=== PATIENT | male | born 1990 | race Two or more races ===

== ENCOUNTER 2021-05-28 12:04 | Inpatient (IN) ==
[2021-05-28 14:20] LABS: Alanine Aminotransferase 23 U/L (16-61); Albumin 3.2 G/DL (3.4-5.0); Alkaline Phosphatase 39 U/L (45-117); Aspartate Amino Transferase 26 U/L (0-37); Basophils # 0.1 10*3/uL (0.0-0.2); Basophils % 0.8 % (0.0-0.8); Bilirubin,Total < 0.39 MG/DL (0.20-1.00); Blood Urea Nitrogen 16 MG/DL (7-18); Calcium 8.4 MG/DL (8.5-10.1); Carbon Dioxide 25 MMOL/L (21-32); Chloride 110 MMOL/L (98-107); Eosinophils # 0.1 10*3/uL (0.0-0.87); Eosinophils % 1.6 % (0.00-10.9); Estimated Glom Filtration Rate 125 ML/MIN; Glucose 86 MG/DL (74-106); Hematocrit 22.3 VOL% (42.0-52.0); Immature Granulocytes % 0.3 %; Immature Granulocytes Absolute 0.02 #; Lymphocytes # 1.6 10*3/uL (1.4-4.0); Lymphocytes % 24.8 % (21.2-54.2); Mean Corpuscular HGB Conc 25.1 GM/DL (32-36); Mean Corpuscular Volume 62.3 FL (87-102); Mean Platelet Volume 9.4 FL (9.6-12.0); Monocytes # 0.8 10*3/uL (0.11-0.8); Monocytes % 13.3 % (1.7-12.7); Neutrophils % 59.2 % (38.7-73.9); Osmolality,Calculated 276.5 MOS/KG (273-304); Platelet Count 429 T/CUMM (130-400); Potassium 3.7 MMOL/L (3.5-5.1); Red Blood Count 3.58 MC/CUMM (3.8-5.5); Sodium 139 MMOL/L (136-145); Total Protein 6.3 G/DL (6.4-8.2); White Blood Count 6.3 T/CUMM (4-12)
[2021-05-28 14:23] LABS: Hemoglobin 5.6 GM/DL (14.0-18.0)
[2021-05-28 14:28] LABS: Anisocytosis 2+; Hypochromia 2+; Macrocytosis 1+; Microcytosis 1+; Platelet Estimate Increased; Polychromasia 1+
[2021-05-28] MEDS ORDERED: ONDANSETRON 4 MG/2 ML VIAL IV PRN (15:30)
[2021-05-28] MEDS ORDERED: SODIUM CHLORIDE 0.9% 1,000 ML IV PRN (15:34)
[2021-05-28 15:49] LABS: Basophils # 0.1 10*3/uL (0.0-0.2); Basophils % 0.8 % (0.0-0.8); Eosinophils # 0.1 10*3/uL (0.0-0.87); Eosinophils % 1.8 % (0.00-10.9); Hematocrit 21.8 VOL% (42.0-52.0); Immature Granulocytes % 0.5 %; Immature Granulocytes Absolute 0.03 #; Lymphocytes # 1.5 10*3/uL (1.4-4.0); Lymphocytes % 24.7 % (21.2-54.2); Mean Corpuscular HGB Conc 25.7 GM/DL (32-36); Mean Corpuscular Volume 63.2 FL (87-102); Mean Platelet Volume 10.1 FL (9.6-12.0); Monocytes # 0.7 10*3/uL (0.11-0.8); Monocytes % 12.3 % (1.7-12.7); NRBC # 0.02 10*3/uL; Neutrophils % 59.9 % (38.7-73.9); Platelet Count 435 T/CUMM (130-400); Red Blood Count 3.45 MC/CUMM (3.8-5.5); Red Cell Distribution Width 19.2 % (9.3-17.3)
[2021-05-28 15:52] LABS: Hemoglobin 5.6 GM/DL (14.0-18.0)
[2021-05-28 17:35] LABS: % Iron Saturation 4.1 % (18-50)
[2021-05-28 17:47] LABS: Folate 13.67 NG/ML (5.38-24.0); Vitamin B12 572 PG/ML (211-911)
[2021-05-28 18:26] LABS: Sedimentation Rate-Westergren 31 MM/HR (0-15)
[2021-05-29 05:27] LABS: Albumin 3.1 G/DL (3.4-5.0); Bilirubin,Total 0.5 MG/DL (0.20-1.00); Calcium 8.2 MG/DL (8.5-10.1); Osmolality,Calculated 278.3 MOS/KG (273-304); Potassium 3.9 MMOL/L (3.5-5.1); Total Protein 6.5 G/DL (6.4-8.2)
[2021-05-29 05:41] LABS: Hematocrit 26.8 VOL% (42.0-52.0); Hemoglobin 7.1 GM/DL (14.0-18.0)
[2021-05-29 09:26] LABS: Hemoglobin A1 (Alkaline) 98.2 % (96.5-98.5); Hemoglobin A2 (Alkaline) 1.8 % (1.5-3.5)
[2021-05-29] MEDS: PANTOPRAZOLE 40 MG TABLET PO SCH (09:55)
[2021-05-29] MEDS: FERRIC GLUCONATE COMPLEX 125 MG in SODIUM CHLORIDE 0.9% 100 ML IV SCH (10:26)
[2021-05-29 15:49] LABS: Basophils # 0.1 10*3/uL (0.0-0.2); Basophils % 0.9 % (0.0-0.8); Eosinophils # 0.1 10*3/uL (0.0-0.87); Eosinophils % 1.8 % (0.00-10.9); Hematocrit 29.5 VOL% (42.0-52.0); Hemoglobin 7.9 GM/DL (14.0-18.0); Immature Granulocytes % 0.6 %; Immature Granulocytes Absolute 0.03 #; Lymphocytes # 1.3 10*3/uL (1.4-4.0); Lymphocytes % 23.8 % (21.2-54.2); Mean Corpuscular HGB Conc 26.8 GM/DL (32-36); Mean Corpuscular Volume 67.5 FL (87-102); Mean Platelet Volume 9.7 FL (9.6-12.0); Monocytes # 0.6 10*3/uL (0.11-0.8); Monocytes % 11.8 % (1.7-12.7); NRBC # 0.02 10*3/uL; Neutrophils % 61.1 % (38.7-73.9); Platelet Count 481 T/CUMM (130-400); Red Blood Count 4.37 MC/CUMM (3.8-5.5); Red Cell Distribution Width 22.6 % (9.3-17.3); White Blood Count 5.4 T/CUMM (4-12)
[2021-05-29 16:41] LABS: Anisocytosis 1+; Hypochromia 1+; Macrocytosis 1+; Microcytosis 1+; Platelet Estimate Increased; Polychromasia 1+; Target Cells 1+
[2021-05-30 05:45] LABS: Calcium 8.4 MG/DL (8.5-10.1); Osmolality,Calculated 282.1 MOS/KG (273-304); Potassium 4.2 MMOL/L (3.5-5.1)
[2021-05-30 06:29] LABS: Basophils # 0.1 10*3/uL (0.0-0.2); Eosinophils # 0.2 10*3/uL (0.0-0.87); Eosinophils % 2.9 % (0.00-10.9); Immature Granulocytes % 0.1 %; Immature Granulocytes Absolute 0.01 #; Lymphocytes # 2.3 10*3/uL (1.4-4.0); Lymphocytes % 31.3 % (21.2-54.2); Mean Corpuscular HGB Conc 27.2 GM/DL (32-36); Mean Corpuscular Volume 67.3 FL (87-102); Mean Platelet Volume 9.8 FL (9.6-12.0); Monocytes # 0.8 10*3/uL (0.11-0.8); Monocytes % 10.3 % (1.7-12.7); NRBC # 0.02 10*3/uL; Neutrophils % 54.4 % (38.7-73.9); Platelet Count 432 T/CUMM (130-400); Red Cell Distribution Width 22.6 % (9.3-17.3); White Blood Count 7.3 T/CUMM (4-12)
[2021-05-30 06:40] LABS: Hematocrit 28.1 VOL% (42.0-52.0); Hemoglobin 7.5 GM/DL (14.0-18.0)
[2021-05-30 06:41] LABS: Hematocrit 27.6 VOL% (42.0-52.0); Hemoglobin 7.5 GM/DL (14.0-18.0)
[2021-05-30] MEDS: PANTOPRAZOLE 40 MG TABLET PO SCH (09:17)
[2021-05-30] MEDS: FERRIC GLUCONATE COMPLEX 125 MG in SODIUM CHLORIDE 0.9% 100 ML IV SCH (09:18)
[2021-05-30] MEDS ORDERED: TERBINAFINE 1% CREAM 12 GM TUBE TOP SCH (11:00)
[2021-05-30 11:53] VITALS: BP 128/62
== END 2021-05-30 13:30 | disposition home or self-care (01) | DRG 812 ==
LOC: N.ED 12:04 → SUATTDRO 15:30 → N.EDINP 15:30 → N.3E 16:54
PROVIDERS: ADMIT Internal Medicine; ATTEND Internal Medicine